=== PATIENT | female | born 1945 | race Caucasian/White ===

== ENCOUNTER → 2017-02-08 | Outpatient (CLI) | payer OTHER ==
[~2017-02-08] MED LIST: AMLODIPINE BESY1 TAB PO; DARVOCET N 1001 TAB PO; LISINOPRIL AND1 TAB PO; LISINOPRIL/HCTZ1 TA1; MOTRIN800 MG PO; NITROFURANTOIN100 M3 PO; NORVASC10 MG PO; PROPRANOLOL HCL20 M1; SERTRALINE HYDR50 MG PO; VESICARE5 MG
== END | disposition home or self-care (01) ==
LOC: RAD 14:11
DX: M79.641 Pain in right hand (principal)

== ENCOUNTER 2017-08-15 10:05 | Emergency (ER) | payer OTHER ==
[~2017-08-15] VITALS: Ht 170.1 cm; Wt 68.0 kg
[2017-08-15 10:34] LABS: BASO % 0.3 % (0.0-1.0); EOS # 0.1 10*3/uL (0.0-0.4); EOS % 0.6 % (1.0-4.0); HEMATOCRIT 45.9 % (37.0-47.0); HEMOGLOBIN 15.7 g/dl (12.0-16.0); LYMPH # 0.9 10*3/uL (1.3-4.4); LYMPH % 8.1 % (27.0-41.0); MEAN CELL VOLUME 87.4 fl (81.0-99.0); MEAN CORPUSCULAR HGB 29.9 pg (27.0-31.0); MEAN CORPUSCULAR HGB CONC 34.2 g/dl (33.0-37.0); MEAN PLATELET VOLUME 9.6 fl (9.6-12.3); MONO # 0.7 10*3/uL (0.1-1.0); MONO % 6.4 % (3.0-9.0); NEUT # 9.6 10*3/uL (2.3-7.9); NEUT % 84.2 % (47.0-73.0); PLATELET COUNT AUTOMATED 174 10*3/uL (130-400); RED BLOOD COUNT 5.25 10*6/uL (4.10-5.10); RED CELL DISTRI WIDTH 12.8 % (0-14.5); WHITE BLOOD COUNT 11.4 10*3/uL (4.8-10.8)
[2017-08-15 10:43] LABS: ACT PARTIAL THROMBO TIME 23.5 SECONDS (20.8-31.5)
[2017-08-15 10:50] LABS: ALBUMIN 3.7 gm/dl (3.1-4.5); ALKALINE PHOSPHATASE 79 U/L (45-117); BUN 18 mg/dl (7-24); CHLORIDE 103 mmol/L (98-107); CREATININE 1.18 mg/dL (0.55-1.02); LIPASE 179 U/L (73-393); POTASSIUM 3.8 mmol/L (3.5-5.1); SGOT/AST 24 IU/L (3-35); SGPT/ALT 23 U/L (12-78); SODIUM 138 mmol/L (136-145); TOTAL PROTEIN 8.1 gm/dL (6.4-8.2)
[2017-08-15 10:58] LABS: TROPONIN I < 0.015 ng/ml (<0.045)
[2017-08-15 11:30] LABS: BILIRUBIN NEGATIVE (NEGATIVE); BLOOD 3+ (NEGATIVE); CLARITY CLOUDY (CLEAR); COLOR YELLOW (YELLOW); GLUCOSE NEGATIVE (NEGATIVE); KETONE 1+ (NEGATIVE); LEUKO ESTERASE 1+ (NEGATIVE); NITRITE NEGATIVE (NEGATIVE); SPECIFIC GRAVITY 1.025 (1.005-1.030); UROBILINOGEN 0.2 E.U./dl (0.2-1.0)
[2017-08-15 11:38] LABS: BACTERIA 2+
[2017-08-15] MEDS ORDERED: ZOFRAN ODT4 MG SL (14:26)
== END 2017-08-15 15:01 | disposition home or self-care (01) ==
LOC: ED 10:05
PROVIDERS: Emergency Medicine
DX: N20.0 Calculus of kidney (principal); R10.12 Left upper quadrant pain; N13.30 Unspecified hydronephrosis; D72.829 Elevated white blood cell count, unspecified; I10 Essential (primary) hypertension; F32.9 Major depressive disorder, single episode, unspecified; N17.0 Acute kidney failure with tubular necrosis; Z90.710 Acquired absence of both cervix and uterus

== ENCOUNTER 2017-10-10 12:52 | Inpatient (IN) | payer OTHER ==
[~2017-10-10] VITALS: Ht 157.5 cm; Wt 72.6 kg
--- NOTE | ~2017-10-10 | PR ---
[place], [place] PROGRESS NOTE NAME: SIDNEY GOLDEN I UNIT #: [id number] ROOM: 528 DOCTOR: NANCIE WEIR MD BIRTHDATE: [birth year] DOS: 10/12/2017 SUBJECTIVE: Patient is not having any complaints this morning. She feels much better. She had a vagal episode yesterday, which resolved on its own. Labs were all within normal limits. OBJECTIVE: VITAL SIGNS: Graphic trend shows pressure of 127/60, pulse of 74, respirations 18, temperature 98.5. LUNGS: Clear. HEART: Regular. ABDOMEN: Obese, soft, nontender. EXTREMITIES: Without any edema. ASSESSMENT AND PLAN: 1. Acute asthmatic bronchitis, improving with treatment. Chest CT did not show any evidence of pneumonia. 2. Acute respiratory distress syndrome, seems to be resolving. Advised the patient to ambulate. The patient should be able to go home tomorrow. 3. Chronic renal failure, stage 3, most likely complicated by the hydrochlorothiazide that she is on. We will continue to follow that as an outpatient and may discontinue this medicine as an outpatient. NANCIE WEIR MD CM:PNTRANS [phone] NANCIE WEIR MD 10/12/174 interface
--- NOTE | ~2017-10-10 | WRIGHTHP ---
[place], [place] PATIENT HISTORY AND PHYSICAL EXAM NAME: SIDNEY GOLDEN I UNIT #: [id number] ROOM: 528 DOCTOR: NANCIE WEIR MD BIRTHDATE: [birth year] DOS: HISTORY OF PRESENT ILLNESS: This patient is 72 years old. The patient comes in with complaints of cough, runny nose, sputum production, fever and chest congestion since Manny. She did not take a flu shot this year and initially thought it was flu, but continued to get worse, so decided finally to come into the Emergency Room. She was last hospitalized about a year ago with UTI. PAST MEDICAL HISTORY: 1. Chronic renal insufficiency. 2. Benign hypertension. 3. Moderate depression. 4. History of negative stress test. MEDICATIONS: She is currently on amlodipine 10 daily, lisinopril/hydrochlorothiazide 20/12.5 mg daily and sertraline 50 daily. SOCIAL HISTORY: Nonsmoker. Does not use any alcohol. PHYSICAL EXAMINATION: GENERAL: The patient is awake, alert and oriented. VITAL SIGNS: Graphic trend shows that she is afebrile this morning, pulse of 78, respirations 14 and blood pressure 122/70. LUNGS: Clear. HEART: Regular. ABDOMEN: Obese, soft, nontender. EXTREMITIES: Without any edema. ASSESSMENT AND PLAN: 1. The patient who presents with cough and shortness of breath, most likely acute asthmatic bronchitis. The patient is placed on intravenous antibiotics and breathing treatments. CT of the chest will be ordered to rule out underlying pathology like pneumonia. 2. Benign hypertension, controlled. Restart home medications. 3. Chronic renal insufficiency. Routine labs will be ordered for tomorrow. [place], [place] PATIENT HISTORY AND PHYSICAL EXAM NAME: SIDNEY GOLDEN I UNIT #: [id number] ROOM: 528 DOCTOR: NANCIE WEIR MD BIRTHDATE: [birth year] NANCIE WEIR MD CM:HISPHYS:PATIENT HISTORY AND PHYSICAL EXAMINATION NANCIE WEIR MD 10/11/17 0850 interface
--- NOTE | ~2017-10-10 | PR ---
[place], [place] PROGRESS NOTE NAME: SIDNEY GOLDEN I UNIT #: [id number] ROOM: 528 DOCTOR: NANCIE WEIR MD BIRTHDATE: [birth year] DOS: 10/13/2017 SUBJECTIVE: The patient is feeling good and is not having any complaints today. The patient is 72 years old, comes in with complaints of cough, shortness of breath of several days' duration. Please see H and P for details. She was evaluated in the ER. Lactic acid was normal. Rapid flu was negative. Chest x-ray did not show any pathology. The patient was placed on IV steroids and breathing treatments and admitted. The patient was found to be having prerenal azotemia and this is most likely from the hydrochlorothiazide that she has been on and she has not had much fluid intake for the last several days. A CT of the chest was negative. The patient is stable and is not having any new problems. Blood cultures were done, which was negative. Urine culture was negative. The plan is to discharge her to home today. Follow up as an outpatient. OBJECTIVE: VITAL SIGNS: Graphic trend shows pressure 131/60, pulse of 70, respirations 18, afebrile. LUNGS: Diminished breath sounds. No wheezes, rales or rhonchi heard this morning. HEART: Regular. ABDOMEN: Obese, soft, nontender. EXTREMITIES: Without any edema. ASSESSMENT AND PLAN: 1. Shortness of breath, possibly from asthmatic bronchitis. 2. Benign hypertension, controlled. 3. Vasovagal episode, possibly from prerenal azotemia. 4. Chronic kidney disease stage III. Advised to avoid nephrotoxic meds. She is on hydrochlorothiazide. We will follow closely. MEDICATIONS ON DISCHARGE: Tapering dose of prednisone, doxycycline 100 mg p.o. twice a day for 7 days and her home medications. [place], [place] PROGRESS NOTE NAME: SIDNEY GOLDEN I UNIT #: [id number] ROOM: 528 DOCTOR: NANCIE WEIR MD BIRTHDATE: [birth year] NANCIE WEIR MD CM:PNTRANS [phone] NANCIE WEIR MD 10/14/17 0227 interface
[~2017-10-10 12:52] MED LIST changes: +ZOFRAN ODT4 MG SL
[2017-10-10 13:13] VITALS: BP 154/98
[2017-10-10 14:23] LABS: BILIRUBIN NEGATIVE (NEGATIVE); BLOOD 1+ (NEGATIVE); CLARITY SL CLOUDY (CLEAR); COLOR YELLOW (YELLOW); GLUCOSE NEGATIVE (NEGATIVE); KETONE 1+ (NEGATIVE); LEUKO ESTERASE 1+ (NEGATIVE); NITRITE NEGATIVE (NEGATIVE); PH 5.5 (5.0-9.0); SPECIFIC GRAVITY 1.025 (1.005-1.030); UROBILINOGEN 0.2 E.U./dl (0.2-1.0)
[2017-10-10 14:31] LABS: BACTERIA 3+
[2017-10-10 14:32] LABS: RBC 21-30 rbc/hpf (0-2)
[2017-10-10 14:33] LABS: WBC 21-30 wbc/hpf (0-5)
[2017-10-10 14:42] LABS: BASO # 0.1 10*3/uL (0.0-0.1); BASO % 0.6 % (0.0-1.0); EOS # 0.1 10*3/uL (0.0-0.4); EOS % 1.6 % (1.0-4.0); HEMATOCRIT 44.2 % (37.0-47.0); HEMOGLOBIN 14.8 g/dl (12.0-16.0); LYMPH # 2.1 10*3/uL (1.3-4.4); LYMPH % 26.5 % (27.0-41.0); MEAN CELL VOLUME 85.3 fl (81.0-99.0); MEAN CORPUSCULAR HGB 28.6 pg (27.0-31.0); MEAN CORPUSCULAR HGB CONC 33.5 g/dl (33.0-37.0); MEAN PLATELET VOLUME 9.7 fl (9.6-12.3); MONO # 0.7 10*3/uL (0.1-1.0); MONO % 8.8 % (3.0-9.0); PLATELET COUNT AUTOMATED 189 10*3/uL (130-400); RED BLOOD COUNT 5.18 10*6/uL (4.10-5.10); RED CELL DISTRI WIDTH 12.8 % (0-14.5)
[2017-10-10 14:55] LABS: ACT PARTIAL THROMBO TIME 23.2 SECONDS (20.8-31.5)
[2017-10-10 15:00] LABS: ALBUMIN 3.6 gm/dl (3.1-4.5); ALKALINE PHOSPHATASE 135 U/L (45-117); BUN 34 mg/dl (7-24); CHLORIDE 103 mmol/L (98-107); LIPASE 285 U/L (73-393); POTASSIUM 3.7 mmol/L (3.5-5.1); SGOT/AST 56 IU/L (3-35); SGPT/ALT 68 U/L (12-78); SODIUM 133 mmol/L (136-145); TOTAL PROTEIN 7.9 gm/dL (6.4-8.2)
[2017-10-10 15:01] LABS: TROPONIN I < 0.015 ng/ml (<0.045)
[2017-10-10 15:30] VITALS: BP 144/66
[2017-10-10 20:00] VITALS: BP 131/55
[2017-10-11] VITALS: BP 135/47
[2017-10-11 08:00] VITALS: BP 147/57
[2017-10-11 12:00] VITALS: BP 142/60
[2017-10-11] MEDS ORDERED: SUNMARK OMEPRAZ20 M1 PO (14:35)
[2017-10-11] MEDS ORDERED: FLOMAX0.4 MG PO (14:36)
[2017-10-11] MEDS ORDERED: OXYBUTYNIN5 MG PO (14:36)
[2017-10-11] MEDS ORDERED: PERCOCET 5-3251 EACH PO (14:36)
[2017-10-11 16:00] VITALS: BP 151/63
[2017-10-11 17:00] LABS: BASO # 0.1 10*3/uL (0.0-0.1); BASO % 0.9 % (0.0-1.0); EOS # 0.2 10*3/uL (0.0-0.4); EOS % 2.8 % (1.0-4.0); LYMPH # 1.7 10*3/uL (1.3-4.4); LYMPH % 29.2 % (27.0-41.0); MEAN CELL VOLUME 85.6 fl (81.0-99.0); MEAN CORPUSCULAR HGB 28.8 pg (27.0-31.0); MEAN CORPUSCULAR HGB CONC 33.6 g/dl (33.0-37.0); MEAN PLATELET VOLUME 9.4 fl (9.6-12.3); MONO # 0.7 10*3/uL (0.1-1.0); MONO % 11.5 % (3.0-9.0); NEUT # 3.1 10*3/uL (2.3-7.9); NEUT % 54.9 % (47.0-73.0); PLATELET COUNT AUTOMATED 169 10*3/uL (130-400); RED CELL DISTRI WIDTH 13.1 % (0-14.5); WHITE BLOOD COUNT 5.7 10*3/uL (4.8-10.8)
[2017-10-11 17:02] LABS: HEMATOCRIT 35.1 % (37.0-47.0); HEMOGLOBIN 11.8 g/dl (12.0-16.0)
[2017-10-11 17:17] LABS: BUN 27 mg/dl (7-24); CHLORIDE 104 mmol/L (98-107); CREATININE 1.74 mg/dL (0.55-1.02); POTASSIUM 4.2 mmol/L (3.5-5.1); SODIUM 138 mmol/L (136-145); TROPONIN I < 0.015 ng/ml (<0.045)
[2017-10-11 20:00] VITALS: BP 116/58
[2017-10-12] VITALS: BP 127/60
[2017-10-12 06:51] LABS: HEMATOCRIT 35.8 % (37.0-47.0); HEMOGLOBIN 12.1 g/dl (12.0-16.0); MEAN CELL VOLUME 85.2 fl (81.0-99.0); MEAN CORPUSCULAR HGB 28.8 pg (27.0-31.0); MEAN CORPUSCULAR HGB CONC 33.8 g/dl (33.0-37.0); MEAN PLATELET VOLUME 9.4 fl (9.6-12.3); PLATELET COUNT AUTOMATED 194 10*3/uL (130-400); WHITE BLOOD COUNT 5.4 10*3/uL (4.8-10.8)
[2017-10-12 07:08] LABS: CREATININE 1.59 mg/dL (0.55-1.02); POTASSIUM 3.9 mmol/L (3.5-5.1)
[2017-10-12 07:35] LABS: ATYPICAL LYMPHS 1 % (0-0); BASOPHILS 2 % (0-1); PLATELET SUFFICIENCY NORMAL (NORMAL); TOTAL CELLS COUNTED 100 #CELLS
[2017-10-12 08:00] VITALS: BP 130/63
[2017-10-12 12:00] VITALS: BP 131/51
[2017-10-12 16:00] VITALS: BP 125/50
[2017-10-12 20:00] VITALS: BP 120/58
[2017-10-13] VITALS: BP 121/50; BP 142/50
[2017-10-13 08:00] VITALS: BP 131/60
[2017-10-13] MEDS ORDERED: DOXYCYCLINE100 M3 PO (08:58)
[2017-10-13] MEDS ORDERED: PREDNISONE5 MG PO (08:58)
== END 2017-10-13 11:01 | disposition home or self-care (01) | DRG 194 ==
LOC: ED 12:52 → EDHOLD 15:49 → 5E 15:49
PROVIDERS: Emergency Medicine; Internal Medicine
DX: J18.9 Pneumonia, unspecified organism (principal); J80 Acute respiratory distress syndrome; N18.3 Chronic kidney disease, stage 3 (moderate); N39.0 Urinary tract infection, site not specified; J20.9 Acute bronchitis, unspecified; E86.0 Dehydration; J45.909 Unspecified asthma, uncomplicated; I12.9 Hypertensive chronic kidney disease with stage 1 through stage 4 chronic kidney disease, or unspecified chronic kidney disease; F32.9 Major depressive disorder, single episode, unspecified; R79.89 Other specified abnormal findings of blood chemistry; Z87.440 Personal history of urinary (tract) infections; K21.9 Gastro-esophageal reflux disease without esophagitis; F41.9 Anxiety disorder, unspecified; Z83.3 Family history of diabetes mellitus; Z82.49 Family history of ischemic heart disease and other diseases of the circulatory system; Z80.9 Family history of malignant neoplasm, unspecified

== ENCOUNTER → 2018-03-24 | Day surgery (SDC) | payer OTHER ==
[~2018-03-24] VITALS: Ht 157.4 cm; Wt 76.7 kg
[~2018-03-24] MED LIST changes: +AMITRIPTYLINE50 MG PO; +DOXYCYCLINE100 M3 PO; +FLOMAX0.4 MG PO; +METOPROLOL TART50 M1 PO; +OMEPRAZOLE40 MG PO; +OXYBUTYNIN5 MG PO; +PERCOCET 5-3251 EACH PO; +PREDNISONE5 MG PO; +SUNMARK OMEPRAZ20 M1 PO
--- NOTE | ~2018-03-24 | O ---
[place], [place] OPERATIVE NOTE NAME: SIDNEY GOLDEN I UNIT #: [id number] ROOM: DOCTOR: RODGER [facility] BIR[facility] [birth year] DOS: 03/24/2018 GASTROENDOSCOPIC REPORT HISTORY OF PRESENT ILLNESS: A 73-year-old patient who was presented with blood in the stool, dyspepsia, undergoing investigation. PAST MEDICAL HISTORY: Hyperlipidemia, gastritis, hypertension. PAST SURGICAL HISTORY: Hysterectomy, adhesions. SOCIAL HISTORY: Nonsmoker, rare alcohol consumer. PROCEDURE: Today's procedure part of investigation is panendoscopy and colonoscopy. PREMEDICATION: Versed and propofol. SCOPE: Olympus forward-viewing gastroscope Q10 video. REPORT: After putting the patient in left lateral position and application of lubricant to the scope, the scope was introduced. Thereafter, under direct visualization, advanced through the length of esophagus without difficulty. Esophagus, cervical, thoracic distal within normal limit. Gastritis was noticed. Antral biopsy obtained. Duodenal bulb, second and third part within normal limits. The patient was gradually extubated and tolerated the procedure well. IMPRESSION: Gastritis, status post biopsy. PLAN AND DISCUSSION: Continuation with omeprazole 40 mg 1 every day, antireflux and follow up as outpatient. Furthermore, we are going to proceed with colonoscopic evaluation today. GASTROENDOSCOPIC REPORT INDICATIONS: The patient has presented with blood in stool, undergoing investigation. PROCEDURE: Today's procedure part of investigation is colonoscopy plus piecemeal polypectomy. PREMEDICATION: Versed and propofol. SCOPE: Olympus forward-viewing colonoscope 10L video. REPORT: After putting the patient in left lateral position and application of lubricant to the scope, the scope was introduced. Thereafter, under direct visualization, advanced through the length of colon without difficulty. Diverticulosis was appreciated. Base of cecum explored, appendiceal orifice [place], [place] OPERATIVE NOTE NAME: SIDNEY GOLDEN I UNIT #: [id number] ROOM: DOCTOR: RODGER [facility] BIRTHDATE: [birth year] identified, ileocecal valve was defined. Scope was gradually withdrawn back to the sigmoid colon. Piecemeal polypectomy of a sessile polyp was undertaken. Diverticulosis was photographed. The patient extubated, tolerated procedure well. IMPRESSION: Diverticulosis and sessile colonic polyp, colon. Blood in the stool was most likely a superficial. There was no evidence of pathology in the rectum. PLAN: High fiber fruit diet. ACTIVITY: Ad shalom. FOLLOWUP: Routinely with you in office, p.r.n. visit with us in GI Clinic. Follow-up colonoscopy in 10 years unless patient has symptoms for which follow-up should be sooner. I thank you very much indeed. ALEX SOARES MD CM:OPRECORD:OPERATIVE NOTE [id number] [id number] NANCIE SOARES MD 04/03/18 1739 interface
[2018-03-24 13:02] VITALS: BP 167/85
[2018-03-24 14:12] VITALS: BP 162/81
[2018-03-24 14:27] VITALS: BP 182/77
[2018-03-24 14:42] VITALS: BP 197/79
[2018-03-24 14:57] VITALS: BP 170/69
[2018-03-24 15:20] VITALS: BP 174/77
== END | disposition home or self-care (01) ==
LOC: SDC 03-21 12:30
DX: K63.5 Polyp of colon (principal); K57.30 Diverticulosis of large intestine without perforation or abscess without bleeding; K29.50 Unspecified chronic gastritis without bleeding; B96.81 Helicobacter pylori [H. pylori] as the cause of diseases classified elsewhere; E78.5 Hyperlipidemia, unspecified; I10 Essential (primary) hypertension; K21.9 Gastro-esophageal reflux disease without esophagitis; F41.9 Anxiety disorder, unspecified; F32.9 Major depressive disorder, single episode, unspecified; Z87.442 Personal history of urinary calculi; Z90.710 Acquired absence of both cervix and uterus; Z79.899 Other long term (current) drug therapy; Z82.49 Family history of ischemic heart disease and other diseases of the circulatory system; Z83.3 Family history of diabetes mellitus

== ENCOUNTER 2019-01-08 12:48 | Inpatient (IN) | payer OTHER ==
[~2019-01-08] VITALS: Ht 157.4 cm; Wt 75.8 kg
--- NOTE | ~2019-01-08 | EKG ---
[place], [place] ELECTROCARDIOGRAM REPORT NAME: SIDNEY GOLDEN I UNIT #: [id number] ROOM: 405 DOCTOR: KUNAL DRAFT REPORT BIRTHDATE: [birth year] [facility] Test Date: 2019-01-08 Test Time: 14:40:46 Pat Name: SIDNEY GOLDEN Department: Room: 405 2 Gender: F Visual Coordinator: Asia Simpson : 1945 Requested By: NANCIE WEIR Order Number: [id number] Reading MD: Jc Martines MD Measurements Intervals [place] Rate: 92 P: 45 [place]: 161 QRS: -46 QRSD: 86 T: 62 QT: 333 QTc: 412 Interpretive Statements Sinus rhythm Left anterior fascicular block Low voltage, precordial leads LVH by voltage Anterior Q waves, possibly due to LVH No previous ECG available for comparison Electronically Signed On 01-09-2019 14:44:01 PDT by Jc Martines MD CM:EKGRPT:ELECTROCARDIOGRAM REPORT 1440 [id number] NANCIE SYED DRAFT REPORT NANCIE WEIR MD
--- NOTE | ~2019-01-08 | WRIGHTHP ---
[place], [place] PATIENT HISTORY AND PHYSICAL EXAM NAME: SIDNEY GOLDEN I UNIT #: [id number] ROOM: 405 DOCTOR: NANCIE WEIR MD BIRTHDATE: [birth year] DOS: 01/09/2019 HISTORY OF PRESENT ILLNESS: The patient is 73 years old. The patient comes to the office with complaints of severe cough, not feeling good, aches and pains, chills and some chest discomfort across. She also complains of pain when she takes a deep breath. Denied having any abdominal pain, nausea, and emesis. The patient has been sick for about a week also and finally decided to come into the office. PAST MEDICAL HISTORY: Significant for 1. Last hospitalization in 10/2017 with asthmatic bronchitis. 2. Benign hypertension. 3. Chronic kidney disease stage 3. MEDICATIONS: That she is currently on are amitriptyline 50 mg daily, lisinopril/hydrochlorothiazide 20/12.5 daily, omeprazole 40 daily. SOCIAL HISTORY: Does not smoke, does not use any alcohol. PHYSICAL EXAMINATION: GENERAL: She is awake and alert, but looked extremely exhausted and tired. VITAL SIGNS: Her heart rate was going in the 120s range. NECK: Supple. No lymph nodes were noted. HEENT: Unremarkable. LUNGS: Diminished breath sounds, few scattered wheezes. HEART: Regular, tachycardic. ABDOMEN: Obese, soft. EXTREMITIES: Without any edema. ASSESSMENT AND PLAN: 1. The patient who presents with chills, rigor, tiredness, diffuse aches and pains, possibly has flu. Titer was done and showed positive for flu A. Placed on Tamiflu. 2. Chest pain. Troponins 3 sets will be ordered along with an echocardiogram. 3. Cough with increased difficulty breathing. Chest x-ray was ordered. I do not have the report yet. We will go ahead and arrange for a CT of the chest. [place], [place] PATIENT HISTORY AND PHYSICAL EXAM NAME: SIDNEY GOLDEN I UNIT #: [id number] ROOM: 405 DOCTOR: NANCIE WEIR MD BIRTHDATE: [birth year] NANCIE WEIR MD CM:HISPHYS:PATIENT HISTORY AND PHYSICAL EXAMINATION [id number] NANCIE WEIR MD 01/09/19 1024 interface
--- NOTE | ~2019-01-08 | DS ---
[place], [place] DISCHARGE SUMMARY NAME: SIDNEY GOLDEN I UNIT #: [id number] ROOM: 405 DOCTOR: NANCIE WEIR MD BIRTHDATE: [birth year] DOS: 01/10/2019 DIAGNOSES: 1. Flu A positive with viral syndrome. 2. Asthmatic bronchitis. 3. Tachycardia. 4. Acute kidney injury. 5. Acute back pain for a fall with radiculopathy. HOSPITAL COURSE: This patient is 73 years old. The patient was admitted with increased chest discomfort, fever, chills, shortness of breath. Please refer to H and P for details. The patient had asthmatic bronchitis, after admission was diagnosed with flu A for which the patient was started on Tamiflu. Three sets of troponins were negative. Chest x-ray was negative. Continued to have cough with bronchospasm. IV steroids were added along with breathing treatments and antibiotics. The patient's CT scan was ordered, which also showed no evidence of pneumonia. Did complain of continued back pain after a recent fall as MRI of the LS spine is pending. The patient is stable. The plan is to discharge her to home today. Follow up as an outpatient. NANCIE WEIR MD CM:ALFREDA [id number] NANCIE WERI MD 01/10/19 0945 interface
--- NOTE | ~2019-01-08 | PR ---
[place], [place] PROGRESS NOTE NAME: SIDNEY GOLDEN I UNIT #: [id number] ROOM: 405 DOCTOR: NANCIE WEIR MD BIRTHDATE: [birth year] DOS: 01/10/2019 SUBJECTIVE: The patient still has a slight cough, but she looks much better. The patient is no longer having any shortness of breath. Appetite is fair. She did complain of back pain after a recent fall, which is radiating down into the right leg. OBJECTIVE: VITAL SIGNS: Pressure is 130/60, pulse of 70, respirations 18, temperature 97.9. LUNGS: Diminished breath sounds, clear. HEART: Regular. ABDOMEN: Soft. EXTREMITIES: Without any edema. IMAGING: CT of the chest was negative. ASSESSMENT AND PLAN: 1. Viral syndrome with flu A positive, on medications. 2. Acute kidney injury, improving with intravenous fluids. 3. Asthmatic bronchitis, improved. Bronchospasm was corrected. 4. Acute back pain from a recent fall. An MRI of lumbosacral spine will be ordered. The patient will be discharged home today. NANCIE WEIR MD CM:PNTRANS [phone] NANCIE WEIR MD 01/10/19 0953 interface
--- NOTE | 2019-01-08 13:35 | NUR ---
[place] 73, admitted to , under the services of NANCIE Rojas MD with a diagnosis of ASTHMATIC BRONCHITIS, CHEST PAIN. Chief complaint is SOB, CHEST PAIN. Patient arrived via wheel chair from [place]. Monitor applied. Initial assessment completed. Vital signs taken and recorded. NANCIE ROJAS MD notified of admission to the unit. Orders received. See assessment for past medical history, medications and allergies. Patient and/or family oriented to unit. [facility]. Clothing/patient valuable form completed. EDDI MEEK.
[2019-01-08] MEDS ORDERED: ZESTORETIC 10-1 EACH PO (14:04)
[2019-01-08 14:17] VITALS: BP 150/88
[2019-01-08 14:49] LABS: BASO % 0.5 % (0.0-1.0); EOS # 0.1 10*3/uL (0.0-0.4); EOS % 1.6 % (1.0-4.0); HEMATOCRIT 43.2 % (37.0-47.0); HEMOGLOBIN 14.6 g/dl (12.0-16.0); LYMPH # 1.6 10*3/uL (1.3-4.4); LYMPH % 21.4 % (27.0-41.0); MEAN CELL VOLUME 92.3 fl (81.0-99.0); MEAN CORPUSCULAR HGB 31.2 pg (27.0-31.0); MEAN CORPUSCULAR HGB CONC 33.8 g/dl (33.0-37.0); MEAN PLATELET VOLUME 8.8 fl (9.6-12.3); MONO # 0.8 10*3/uL (0.1-1.0); MONO % 10.1 % (3.0-9.0); NEUT # 4.9 10*3/uL (2.3-7.9); NEUT % 65.7 % (47.0-73.0); PLATELET COUNT AUTOMATED 181 10*3/uL (130-400); RED BLOOD COUNT 4.68 10*6/uL (4.10-5.10); RED CELL DISTRI WIDTH 13.1 % (0-14.5); WHITE BLOOD COUNT 7.5 10*3/uL (4.8-10.8)
[2019-01-08 15:22] LABS: CREATININE 1.56 mg/dL (0.55-1.02)
--- NOTE | 2019-01-08 16:03 | NUR ---
DR WEIR NOTIFIED OF POSITIVE FLU A
--- NOTE | 2019-01-08 18:32 | NUR ---
IV HAVEN INFILTRATED, RESTART IN LW WARM COMPRESS PLACED
[2019-01-08 20:00] VITALS: BP 143/76
--- NOTE | 2019-01-08 22:45 | NUR ---
CONTACTED DR. PERALTA IN REGARDS TO PATIENT C/O HEADACHE, SEE NEW ORDERS.
[2019-01-09] VITALS: BP 165/79
[2019-01-09 08:00] VITALS: BP 136/84
--- NOTE | 2019-01-09 09:00 | NUR ---
Hall Director in to talk to patient. Patient states lives at home alone with her family checking in on her. There are 0 steps in the home. Physician: Dr. Esperanza Rodríguez [facility]: [facility] Home health services: none Patient's level of ADLs: INDEPENDENT Patient has working utilities: yes DME: none Follow-up physician's appointment after d/c: she prefers to make her own follow up appt after discharge Does patient want to access PORTAL?: no Discharge plan discussed with patient. She lives at home alone with her family checking in on her. She is independent in her ADLs and ambulation. Discussed home health care services and she denies any home needs at this time. When medically stable she will be discharged to home. JOAQUINA LOWE
--- NOTE | 2019-01-09 09:41 | NUR ---
MEDICATED WITH 2 TYLENOL FOR COMPLAINTS OF A HEADACHE
[2019-01-09 12:00] VITALS: BP 126/63
[2019-01-09 16:10] VITALS: BP 106/57
[2019-01-09 20:00] VITALS: BP 114/54
[2019-01-10] VITALS: BP 130/60
--- NOTE | 2019-01-10 08:10 | NUR ---
PT RESTING IN BED WITH HOB ELEVATED. RESP-EASY AND REGULAR. IVF INFUSING WITH NO PROBLEM. NO C/O AT THIS TIME. STUDENT NURSE WITH PT ALSO TODAY. CALL LIGHT IN REACH.
[2019-01-10] MEDS ORDERED: LISINOPRIL10 M1 PO (08:19)
[2019-01-10] MEDS ORDERED: TAMIFLU 75MG CA75 MG PO (08:19)
[2019-01-10] MEDS ORDERED: DOXYCYCLINE100 M3 PO (08:19)
[2019-01-10] MEDS ORDERED: PREDNISONE5 MG PO (08:19)
--- NOTE | 2019-01-10 09:00 | NUR ---
Sound Designer in to see patient. No new needs or request at this time. She denies any home needs. When medically stable she will be discharged to home.
--- NOTE | 2019-01-10 10:00 | NUR ---
RESTING IN BED WAITING FOR MRI TEST.
--- NOTE | 2019-01-10 11:40 | NUR ---
RETURNED FROM MRI. LUNCH ORDERED. nO C/O, RESTING IN BED. cALL LIGHT WITH IN REACH. MABEL PATEL
[2019-01-10 12:00] VITALS: BP 147/73
--- NOTE | 2019-01-10 13:00 | NUR ---
Discharge instructions reviewed with patient/family. Patient receptive and verbalizes understanding. Follow-up care arranged. Written instructions given to patient/family. HEPLOCK REMOVED 2X2 APPLIED. ASSISTED OFF THE FLOOR VIA WHEELCHAIR WITH VISITOR AT HER SIDE. TAI MICHELLE R
== END 2019-01-10 13:00 | disposition home or self-care (01) | DRG 194 ==
LOC: 4E 12:48
PROVIDERS: ADMIT Internal Medicine
DX: J10.1 Influenza due to other identified influenza virus with other respiratory manifestations (principal); N17.9 Acute kidney failure, unspecified; R09.1 Pleurisy; J45.909 Unspecified asthma, uncomplicated; M54.10 Radiculopathy, site unspecified; N18.3 Chronic kidney disease, stage 3 (moderate); I12.9 Hypertensive chronic kidney disease with stage 1 through stage 4 chronic kidney disease, or unspecified chronic kidney disease; Z91.81 History of falling

== ENCOUNTER → 2020-08-29 | Outpatient (CLI) | payer OTHER ==
[~2020-08-29] MED LIST changes: +LISINOPRIL10 M1 PO; +TAMIFLU 75MG CA75 MG PO; +ZESTORETIC 10-1 EACH PO
== END | disposition home or self-care (01) ==
LOC: COVID19 14:54
PROVIDERS: ATTEND Physician Assistant
DX: Z20.828 Contact with and (suspected) exposure to other viral communicable diseases (principal)

== ENCOUNTER → 2020-09-22 | Outpatient (CLI) | payer OTHER | END | disposition home or self-care (01) | LOC: US 06:59 | PROVIDERS: ATTEND Physician Assistant | DX: N28.9 Disorder of kidney and ureter, unspecified (principal); I10 Essential (primary) hypertension; N28.89 Other specified disorders of kidney and ureter ==

== ENCOUNTER 2020-12-23 11:33 | Emergency (ER) | payer OTHER ==
[~2020-12-23] VITALS: Ht 160 cm; Wt 74.8 kg
[2020-12-23 13:55] LABS: BILIRUBIN Negative (Negative); BLOOD 1+ (Negative); CLARITY Clear (Clear); COLOR Yellow (Yellow); GLUCOSE Negative (Negative); KETONE Negative (Negative); LEUKO ESTERASE 2+ (Negative); NITRITE Negative (Negative); UROBILINOGEN 0.2 E.U./dl (0.0-1.0)
[2020-12-23 14:14] LABS: BACTERIA 2+; WBC 41-50 wbc/hpf (0-5)
[2020-12-23] MEDS ORDERED: FLOMAX0.4 MG PO (17:36)
[2020-12-23] MEDS ORDERED: HYDROCODONE-AC1 EAC1 PO (17:37)
[2020-12-23] MEDS ORDERED: CEFUROXIME AXE500 MG PO (17:37)
== END 2020-12-23 17:41 | disposition home or self-care (01) ==
LOC: ED 11:33
PROVIDERS: Physician Assistant
DX: N20.1 Calculus of ureter (principal); F41.9 Anxiety disorder, unspecified; K21.9 Gastro-esophageal reflux disease without esophagitis; I10 Essential (primary) hypertension; F32.9 Major depressive disorder, single episode, unspecified; Z79.899 Other long term (current) drug therapy; Z90.711 Acquired absence of uterus with remaining cervical stump; Z98.890 Other specified postprocedural states

== ENCOUNTER 2021-06-03 20:48 | Inpatient (IN) | payer OTHER ==
[~2021-06-03] VITALS: Ht 158.7 cm; Wt 81.9 kg
[~2021-06-03 20:48] MED LIST changes: +CEFUROXIME AXE500 MG PO; +HYDROCODONE-AC1 EAC1 PO
[2021-06-03 20:56] VITALS: BP 223/83
[2021-06-03 21:11] VITALS: BP 198/103
[2021-06-03 21:17] LABS: BASO # 0.1 10*3/uL (0.0-0.1); BASO % 0.8 % (0.0-1.0); EOS # 0.3 10*3/uL (0.0-0.4); EOS % 4.7 % (1.0-4.0); LYMPH # 2.5 10*3/uL (1.3-4.4); LYMPH % 40.7 % (27.0-41.0); MEAN CELL VOLUME 85.5 fl (81.0-99.0); MEAN CORPUSCULAR HGB 28.4 pg (27.0-31.0); MEAN CORPUSCULAR HGB CONC 33.3 g/dl (33.0-37.0); MEAN PLATELET VOLUME 9.2 fl (9.6-12.3); MONO # 0.7 10*3/uL (0.1-1.0); MONO % 10.8 % (3.0-9.0); NEUT # 2.6 10*3/uL (2.3-7.9); NEUT % 42.5 % (47.0-73.0); PLATELET COUNT AUTOMATED 237 10*3/uL (130-400); RED BLOOD COUNT 4.68 10*6/uL (4.10-5.10); RED CELL DISTRI WIDTH 13.9 % (0-14.5); WHITE BLOOD COUNT 6.2 10*3/uL (4.8-10.8)
[2021-06-03 21:35] LABS: ALBUMIN 3.7 gm/dl (3.1-4.5); ALKALINE PHOSPHATASE 74 U/L (45-117); BUN 27 mg/dl (7-24); CHLORIDE 109 mmol/L (98-107); CREATININE 1.31 mg/dL (0.55-1.02); POTASSIUM 4.1 mmol/L (3.5-5.1); SGOT/AST 19 IU/L (3-35); SGPT/ALT 19 U/L (12-78); SODIUM 140 mmol/L (136-145); TOTAL PROTEIN 7.4 gm/dL (6.4-8.2)
[2021-06-03 21:41] LABS: TROPONIN I < 0.015 ng/ml (<0.045)
[2021-06-03 21:50] VITALS: BP 210/75
[2021-06-03 22:18] VITALS: BP 180/78
[2021-06-04] VITALS (9 sets, daily range): BP systolic 128–200; BP diastolic 45–98
[2021-06-04 06:03] LABS: ALBUMIN 3.2 gm/dl (3.1-4.5); CREATININE 1.25 mg/dL (0.55-1.02); POTASSIUM 3.9 mmol/L (3.5-5.1); TOTAL PROTEIN 6.4 gm/dL (6.4-8.2)
[2021-06-04 06:25] LABS: BASO % 0.7 % (0.0-1.0); EOS # 0.3 10*3/uL (0.0-0.4); EOS % 4.3 % (1.0-4.0); HEMATOCRIT 38.1 % (37.0-47.0); LYMPH # 1.9 10*3/uL (1.3-4.4); LYMPH % 33.5 % (27.0-41.0); MEAN CELL VOLUME 87.6 fl (81.0-99.0); MEAN CORPUSCULAR HGB 28.7 pg (27.0-31.0); MEAN CORPUSCULAR HGB CONC 32.8 g/dl (33.0-37.0); MEAN PLATELET VOLUME 9.9 fl (9.6-12.3); MONO # 0.6 10*3/uL (0.1-1.0); PLATELET COUNT AUTOMATED 221 10*3/uL (130-400); RED BLOOD COUNT 4.35 10*6/uL (4.10-5.10); RED CELL DISTRI WIDTH 13.9 % (0-14.5); WHITE BLOOD COUNT 5.8 10*3/uL (4.8-10.8)
[2021-06-05] VITALS: BP 169/77
[2021-06-05 06:07] LABS: BASO # 0.1 10*3/uL (0.0-0.1); BASO % 0.9 % (0.0-1.0); EOS # 0.3 10*3/uL (0.0-0.4); EOS % 4.9 % (1.0-4.0); HEMATOCRIT 38.3 % (37.0-47.0); LYMPH # 2.1 10*3/uL (1.3-4.4); LYMPH % 37.4 % (27.0-41.0); MEAN CELL VOLUME 86.8 fl (81.0-99.0); MEAN CORPUSCULAR HGB 28.8 pg (27.0-31.0); MEAN CORPUSCULAR HGB CONC 33.2 g/dl (33.0-37.0); MEAN PLATELET VOLUME 9.6 fl (9.6-12.3); MONO # 0.6 10*3/uL (0.1-1.0); MONO % 10.4 % (3.0-9.0); NEUT # 2.6 10*3/uL (2.3-7.9); NEUT % 45.7 % (47.0-73.0); PLATELET COUNT AUTOMATED 222 10*3/uL (130-400); RED BLOOD COUNT 4.41 10*6/uL (4.10-5.10); RED CELL DISTRI WIDTH 13.9 % (0-14.5); WHITE BLOOD COUNT 5.7 10*3/uL (4.8-10.8)
[2021-06-05 06:24] LABS: ALBUMIN 3.2 gm/dl (3.1-4.5); CREATININE 1.36 mg/dL (0.55-1.02); POTASSIUM 4.1 mmol/L (3.5-5.1); TOTAL PROTEIN 6.5 gm/dL (6.4-8.2)
[2021-06-05 08:00] VITALS: BP 151/67
[2021-06-05 12:00] VITALS: BP 121/54
[2021-06-05] MEDS ORDERED: AMLODIPINE BESYL5 MG PO (13:17)
== END 2021-06-05 14:53 | disposition home or self-care (01) | DRG 205 ==
LOC: ED 20:48 → 5E 23:08 → EDHOLD 23:08 → 5E 23:55
PROVIDERS: Internal Medicine; Nurse Practitioner Family; ADMIT Family Medicine; ATTEND Family Medicine
PROC: 4A02XM4 Measurement of Cardiac Total Activity, External Approach (ICD-10-PCS; principal; 2021-06-04)
PROC: 3E073KZ Introduction of Other Diagnostic Substance into Coronary Artery, Percutaneous Approach (ICD-10-PCS; 2021-06-04)
DX: M94.0 Chondrocostal junction syndrome [Tietze] (principal); N17.0 Acute kidney failure with tubular necrosis; I16.1 Hypertensive emergency; I12.9 Hypertensive chronic kidney disease with stage 1 through stage 4 chronic kidney disease, or unspecified chronic kidney disease; N18.32 Chronic kidney disease, stage 3b; R00.1 Bradycardia, unspecified; E87.8 Other disorders of electrolyte and fluid balance, not elsewhere classified; F32.9 Major depressive disorder, single episode, unspecified; E78.5 Hyperlipidemia, unspecified; I25.10 Atherosclerotic heart disease of native coronary artery without angina pectoris; Z82.49 Family history of ischemic heart disease and other diseases of the circulatory system; Z79.899 Other long term (current) drug therapy; Z79.1 Long term (current) use of non-steroidal anti-inflammatories (NSAID); Z95.5 Presence of coronary angioplasty implant and graft; Z90.710 Acquired absence of both cervix and uterus

== ENCOUNTER → 2021-10-23 | Day surgery (SDC) | payer OTHER ==
[2021-10-23] VITALS (12 sets, daily range): BP systolic 152–174; BP diastolic 54–98
[~2021-10-23] VITALS: Ht 157.4 cm; Wt 77.1 kg
[~2021-10-23] MED LIST changes: +AMLODIPINE BESYL5 MG PO; +AMOXICILLIN500 M2 PO; +COLACE100 MG PO; +COREG12.5 M1 PO; +CRESTOR20 M1 PO; +Carafate1 GM PO; +Clarithromycin250 MG PO; +MYRBETRIQ25 M1 PO; +NITROSTAT0.4 MG SL; +PANTOPRAZOLE SO40 MG PO; +TOPROL XL25 MG PO; +ZOFRAN4 MG PO
[2021-10-23 11:02] LABS: ALBUMIN 3.3 gm/dl (3.1-4.5); CREATININE 1.6 mg/dL (0.55-1.02); POTASSIUM 4.1 mmol/L (3.5-5.1); TOTAL PROTEIN 6.8 gm/dL (6.4-8.2)
== END | disposition home or self-care (01) ==
LOC: SDC 10-20 13:15
PROVIDERS: ATTEND Surgery
DX: K80.10 Calculus of gallbladder with chronic cholecystitis without obstruction (principal); F41.9 Anxiety disorder, unspecified; F32.9 Major depressive disorder, single episode, unspecified; K21.9 Gastro-esophageal reflux disease without esophagitis; J44.9 Chronic obstructive pulmonary disease, unspecified; I25.10 Atherosclerotic heart disease of native coronary artery without angina pectoris; E78.5 Hyperlipidemia, unspecified; I12.9 Hypertensive chronic kidney disease with stage 1 through stage 4 chronic kidney disease, or unspecified chronic kidney disease; N18.30 Chronic kidney disease, stage 3 unspecified; Z87.891 Personal history of nicotine dependence; Z79.899 Other long term (current) drug therapy

== ENCOUNTER 2022-05-06 08:02 | Inpatient (IN) | payer OTHER ==
[~2022-05-06] VITALS: Ht 157.4 cm; Wt 75.5 kg
[2022-05-06 08:05] VITALS: BP 144/85
[2022-05-06 08:35] LABS: BASO % 0.6 % (0.0-1.0); EOS # 0.1 10*3/uL (0.0-0.4); HEMATOCRIT 46.1 % (37.0-47.0); LYMPH # 1.4 10*3/uL (1.3-4.4); LYMPH % 28.7 % (27.0-41.0); MEAN CELL VOLUME 87.5 fl (81.0-99.0); MEAN CORPUSCULAR HGB CONC 33.2 g/dl (33.0-37.0); MEAN PLATELET VOLUME 9.5 fl (9.6-12.3); MONO # 0.8 10*3/uL (0.1-1.0); MONO % 15.9 % (3.0-9.0); NEUT # 2.6 10*3/uL (2.3-7.9); NEUT % 53.2 % (47.0-73.0); PLATELET COUNT AUTOMATED 155 10*3/uL (130-400); RED BLOOD COUNT 5.27 10*6/uL (4.10-5.10); RED CELL DISTRI WIDTH 13.7 % (0-14.5); WHITE BLOOD COUNT 4.8 10*3/uL (4.8-10.8)
[2022-05-06 08:45] LABS: ACT PARTIAL THROMBO TIME 31.1 SECONDS (20.0-32.1)
[2022-05-06 08:53] LABS: CREATININE 1.47 mg/dL (0.55-1.02); POTASSIUM 4.1 mmol/L (3.5-5.1); TOTAL PROTEIN 7.3 gm/dL (6.4-8.2)
[2022-05-06 16:24] VITALS: BP 176/66
[2022-05-06 16:25] VITALS: BP 145/89
[2022-05-06] MEDS ORDERED: ZOLOFT50 MG PO (17:16)
[2022-05-06 20:00] VITALS: BP 166/78; BP 174/83
[2022-05-07] VITALS: BP 148/81
[2022-05-07 06:31] LABS: BASO % 0.5 % (0.0-1.0); HEMATOCRIT 47.8 % (37.0-47.0); LYMPH # 0.8 10*3/uL (1.3-4.4); LYMPH % 37.3 % (27.0-41.0); MEAN CELL VOLUME 86.8 fl (81.0-99.0); MEAN CORPUSCULAR HGB 28.9 pg (27.0-31.0); MEAN CORPUSCULAR HGB CONC 33.3 g/dl (33.0-37.0); MONO # 0.2 10*3/uL (0.1-1.0); MONO % 8.5 % (3.0-9.0); NEUT # 1.1 10*3/uL (2.3-7.9); NEUT % 53.2 % (47.0-73.0); PLATELET COUNT AUTOMATED 163 10*3/uL (130-400); RED BLOOD COUNT 5.51 10*6/uL (4.10-5.10); RED CELL DISTRI WIDTH 13.4 % (0-14.5); WHITE BLOOD COUNT 2.1 10*3/uL (4.8-10.8)
[2022-05-07 06:51] LABS: CREATININE 1.41 mg/dL (0.55-1.02); FREE T4 1.19 ng/dl (0.76-1.46); POTASSIUM 4.3 mmol/L (3.5-5.1); TOTAL PROTEIN 7.8 gm/dL (6.4-8.2)
[2022-05-07 06:55] LABS: THYROID STIM HORMONE (HS) 0.73 uIU/ml (0.358-4.75)
[2022-05-07 08:00] VITALS: BP 155/99
[2022-05-07 09:56] LABS: VITAMIN D, 25-HYDROXY 38.2 ng/mL (30-100)
[2022-05-07 12:00] VITALS: BP 172/86
[2022-05-07 16:00] VITALS: BP 187/81
[2022-05-07 20:00] VITALS: BP 175/82
[2022-05-08] VITALS: BP 180/86; BP 195/98
[2022-05-08 02:46] VITALS: BP 163/70
[2022-05-08 05:42] LABS: CREATININE 1.24 mg/dL (0.55-1.02); POTASSIUM 4.1 mmol/L (3.5-5.1); TOTAL PROTEIN 7.3 gm/dL (6.4-8.2)
[2022-05-08 06:14] LABS: BASO % 0.1 % (0.0-1.0); HEMATOCRIT 43.5 % (37.0-47.0); LYMPH # 1.8 10*3/uL (1.3-4.4); LYMPH % 25.5 % (27.0-41.0); MEAN CELL VOLUME 85.8 fl (81.0-99.0); MEAN CORPUSCULAR HGB 29.4 pg (27.0-31.0); MEAN CORPUSCULAR HGB CONC 34.3 g/dl (33.0-37.0); MEAN PLATELET VOLUME 10.4 fl (9.6-12.3); MONO # 0.7 10*3/uL (0.1-1.0); MONO % 9.6 % (3.0-9.0); NEUT # 4.5 10*3/uL (2.3-7.9); NEUT % 63.9 % (47.0-73.0); PLATELET COUNT AUTOMATED 173 10*3/uL (130-400); RED BLOOD COUNT 5.07 10*6/uL (4.10-5.10); RED CELL DISTRI WIDTH 13.5 % (0-14.5)
[2022-05-08 08:00] VITALS: BP 208/80
[2022-05-08] MEDS ORDERED: Lopressor25 MG PO (08:26)
[2022-05-08 12:00] VITALS: BP 130/52
[2022-05-08 16:00] VITALS: BP 140/63
[2022-05-08 20:00] VITALS: BP 159/57
[2022-05-09] VITALS: BP 164/56
[2022-05-09 05:47] LABS: CREATININE 1.22 mg/dL (0.55-1.02); POTASSIUM 4.1 mmol/L (3.5-5.1)
[2022-05-09 08:00] VITALS: BP 185/83
[2022-05-09 12:00] VITALS: BP 178/60
[2022-05-09 16:00] VITALS: BP 156/70
[2022-05-09 20:00] VITALS: BP 174/84
[2022-05-09 21:00] VITALS: BP 170/80
[2022-05-10] VITALS: BP 175/71
[2022-05-10 01:55] VITALS: BP 174/72
[2022-05-10 06:33] LABS: BASO # 0.1 10*3/uL (0.0-0.1); BASO % 0.7 % (0.0-1.0); HEMATOCRIT 46.2 % (37.0-47.0); LYMPH # 2.4 10*3/uL (1.3-4.4); LYMPH % 32.4 % (27.0-41.0); MEAN CORPUSCULAR HGB 28.5 pg (27.0-31.0); MEAN PLATELET VOLUME 10.4 fl (9.6-12.3); MONO # 0.6 10*3/uL (0.1-1.0); MONO % 8.7 % (3.0-9.0); NEUT # 4.2 10*3/uL (2.3-7.9); NEUT % 56.3 % (47.0-73.0); PLATELET COUNT AUTOMATED 217 10*3/uL (130-400); RED CELL DISTRI WIDTH 13.2 % (0-14.5); WHITE BLOOD COUNT 7.4 10*3/uL (4.8-10.8)
[2022-05-10 06:35] LABS: CREATININE 1.23 mg/dL (0.55-1.02); POTASSIUM 4.1 mmol/L (3.5-5.1); TOTAL PROTEIN 7.5 gm/dL (6.4-8.2)
[2022-05-10 08:00] VITALS: BP 162/84
[2022-05-10 12:00] VITALS: BP 137/78
[2022-05-10 16:00] VITALS: BP 120/54
[2022-05-10 20:00] VITALS: BP 154/72
[2022-05-11] VITALS: BP 160/73
[2022-05-11 06:20] LABS: CREATININE 1.22 mg/dL (0.55-1.02); POTASSIUM 4.1 mmol/L (3.5-5.1)
[2022-05-11 08:00] VITALS: BP 185/70
[2022-05-11 12:00] VITALS: BP 115/91
[2022-05-11] MEDS ORDERED: HYDR12.5C PO (13:44)
[2022-05-11] MEDS ORDERED: AMLODIPINE BESYL5 MG PO (13:44)
[2022-05-11] MEDS ORDERED: DEXAMETHASONE4 MG PO (13:44)
[2022-05-11] MEDS ORDERED: CARVEDILOL6.25 MG PO (13:44)
== END 2022-05-11 15:21 | disposition home or self-care (01) | DRG 178 ==
LOC: ED 08:02 → EDHOLD 15:45 → 4E 15:45
PROVIDERS: Emergency Medicine; Internal Medicine; Registered Nurse; ADMIT Internal Medicine; ATTEND Internal Medicine
DX: U07.1 COVID-19 (principal); E87.2 Acidosis; I25.10 Atherosclerotic heart disease of native coronary artery without angina pectoris; N18.32 Chronic kidney disease, stage 3b; R74.01 Elevation of levels of liver transaminase levels; I12.9 Hypertensive chronic kidney disease with stage 1 through stage 4 chronic kidney disease, or unspecified chronic kidney disease; F32.A Depression, unspecified; R73.9 Hyperglycemia, unspecified; I16.0 Hypertensive urgency; Z68.30 Body mass index [BMI] 30.0-30.9, adult; Z95.5 Presence of coronary angioplasty implant and graft; Z90.710 Acquired absence of both cervix and uterus; Z98.42 Cataract extraction status, left eye; Z98.41 Cataract extraction status, right eye; Z82.49 Family history of ischemic heart disease and other diseases of the circulatory system; Z79.82 Long term (current) use of aspirin; R32 Unspecified urinary incontinence

== ENCOUNTER → 2022-06-16 | Outpatient (CLI) | payer OTHER ==
[~2022-06-16] MED LIST changes: +CARVEDILOL6.25 MG PO; +DEXAMETHASONE4 MG PO; +HYDR12.5C PO; +Lopressor25 MG PO; +ZOLOFT50 MG PO
== END | disposition home or self-care (01) ==
LOC: MAMMO 10:42
PROVIDERS: ATTEND Physician Assistant
DX: Z12.31 Encounter for screening mammogram for malignant neoplasm of breast (principal); N64.9 Disorder of breast, unspecified

== ENCOUNTER 2022-07-17 14:03 | Emergency (ER) | payer OTHER ==
[~2022-07-17] VITALS: Ht 157.5 cm; Wt 76.2 kg
[2022-07-17 15:06] LABS: BASO # 0.1 10*3/uL (0.0-0.1); BASO % 0.7 % (0.0-1.0); EOS # 0.2 10*3/uL (0.0-0.4); EOS % 2.2 % (1.0-4.0); HEMATOCRIT 41.5 % (37.0-47.0); LYMPH # 1.8 10*3/uL (1.3-4.4); LYMPH % 24.5 % (27.0-41.0); MEAN CORPUSCULAR HGB 28.9 pg (27.0-31.0); MEAN CORPUSCULAR HGB CONC 33.3 g/dl (33.0-37.0); MEAN PLATELET VOLUME 9.6 fl (9.6-12.3); MONO # 0.9 10*3/uL (0.1-1.0); MONO % 11.7 % (3.0-9.0); NEUT # 4.4 10*3/uL (2.3-7.9); NEUT % 60.3 % (47.0-73.0); PLATELET COUNT AUTOMATED 177 10*3/uL (130-400); RED BLOOD COUNT 4.77 10*6/uL (4.10-5.10); RED CELL DISTRI WIDTH 13.8 % (0-14.5); WHITE BLOOD COUNT 7.3 10*3/uL (4.8-10.8)
[2022-07-17 15:30] LABS: CREATININE 2.72 mg/dL (0.55-1.02); POTASSIUM 4.1 mmol/L (3.5-5.1)
== END 2022-07-17 19:10 | disposition short-term general hospital (02) ==
LOC: ED 14:03
PROVIDERS: Student in an Organized Health Care Education/Training Program
DX: N20.0 Calculus of kidney (principal); N17.9 Acute kidney failure, unspecified; I10 Essential (primary) hypertension; I25.10 Atherosclerotic heart disease of native coronary artery without angina pectoris; Z98.890 Other specified postprocedural states; Z90.710 Acquired absence of both cervix and uterus; Z79.899 Other long term (current) drug therapy

== ENCOUNTER → 2022-11-04 | Outpatient (CLI) | payer OTHER ==
[~2022-11-04] MED LIST changes: +ASPIRIN ADULT L81 M2 PO; +ATORVASTATIN CA40 M1 PO; +OXYBUTYNIN CHLOR5 M1 PO; +PHENAZOPYRIDIN100 M1 PO
== END | disposition home or self-care (01) ==
LOC: US 13:48
PROVIDERS: ATTEND Urology
DX: N13.30 Unspecified hydronephrosis (principal); N28.89 Other specified disorders of kidney and ureter

== ENCOUNTER 2022-11-12 10:26 | Emergency (ER) | payer OTHER ==
[~2022-11-12] VITALS: Ht 157.4 cm; Wt 64.0 kg
[2022-11-12] MEDS ORDERED: PANTOPRAZOLE SO40 MG PO (10:43)
[2022-11-12] MEDS ORDERED: POTASSIUM CHLO20 ME4 PO (10:43)
[2022-11-12] MEDS ORDERED: SODIUM BICARBO650 MG PO (10:44)
[2022-11-12 11:08] LABS: BASO # 0.1 10*3/uL (0.0-0.1); BASO % 0.4 % (0.0-1.0); EOS % 0.1 % (1.0-4.0); HEMATOCRIT 32.7 % (37.0-47.0); LYMPH # 1.8 10*3/uL (1.3-4.4); LYMPH % 12.2 % (27.0-41.0); MEAN CELL VOLUME 86.7 fl (81.0-99.0); MEAN CORPUSCULAR HGB 27.9 pg (27.0-31.0); MEAN CORPUSCULAR HGB CONC 32.1 g/dl (33.0-37.0); MEAN PLATELET VOLUME 9.5 fl (9.6-12.3); MONO # 1.3 10*3/uL (0.1-1.0); MONO % 8.9 % (3.0-9.0); NEUT # 11.3 10*3/uL (2.3-7.9); NEUT % 77.6 % (47.0-73.0); PLATELET COUNT AUTOMATED 313 10*3/uL (130-400); RED BLOOD COUNT 3.77 10*6/uL (4.10-5.10); RED CELL DISTRI WIDTH 14.6 % (0-14.5); WHITE BLOOD COUNT 14.6 10*3/uL (4.8-10.8)
[2022-11-12 11:32] LABS: TOTAL PROTEIN 7.6 gm/dL (6.0-8.0)
[2022-11-12 12:34] LABS: BILIRUBIN Negative (Negative); BLOOD 3+ (Negative); CLARITY Turbid (Clear); COLOR Yellow (Yellow); GLUCOSE Negative (Negative); KETONE Trace (Negative); LEUKO ESTERASE 3+ (Negative); NITRITE Positive (Negative); UROBILINOGEN 0.2 E.U./dl (0.0-1.0)
[2022-11-12 13:12] LABS: BACTERIA 2+; RBC 16-20 rbc/hpf (0-2); WBC TNTC wbc/hpf (0-5)
== END 2022-11-12 23:00 | disposition short-term general hospital (02) ==
LOC: ED 10:26
PROVIDERS: Emergency Medicine
DX: A41.9 Sepsis, unspecified organism (principal); N13.30 Unspecified hydronephrosis; I21.4 Non-ST elevation (NSTEMI) myocardial infarction; N12 Tubulo-interstitial nephritis, not specified as acute or chronic; Z90.710 Acquired absence of both cervix and uterus; Z90.49 Acquired absence of other specified parts of digestive tract; Z98.890 Other specified postprocedural states; F10.20 Alcohol dependence, uncomplicated; Z20.822 Contact with and (suspected) exposure to COVID-19; N39.0 Urinary tract infection, site not specified; N17.9 Acute kidney failure, unspecified; D72.89 Other specified disorders of white blood cells; R79.82 Elevated C-reactive protein (CRP); E87.1 Hypo-osmolality and hyponatremia; K21.9 Gastro-esophageal reflux disease without esophagitis; J44.9 Chronic obstructive pulmonary disease, unspecified; I10 Essential (primary) hypertension

== ENCOUNTER 2024-02-21 09:00 | Emergency (ER) | payer OTHER ==
[~2024-02-21] VITALS: Ht 157.4 cm; Wt 79.4 kg
[~2024-02-21 09:00] MED LIST changes: +APRESOLINE25 MG PO; +POTASSIUM CHLO20 ME4 PO; +SODIUM BICARBO650 MG PO
[2024-02-21] MEDS ORDERED: SODIUM CHLORIDE 0.9% 1,000 ML IV ONE (09:10)
[2024-02-21 09:32] LABS: BASO # 0.1 10*3/uL (0.0-0.1); BASO % 0.8 % (0.0-1.0); EOS # 0.3 10*3/uL (0.0-0.4); EOS % 4.3 % (1.0-4.0); HEMATOCRIT 41.4 % (37.0-47.0); LYMPH # 1.8 10*3/uL (1.3-4.4); LYMPH % 29.2 % (27.0-41.0); MEAN CORPUSCULAR HGB 29.2 pg (27.0-31.0); MEAN CORPUSCULAR HGB CONC 32.1 g/dl (33.0-37.0); MEAN PLATELET VOLUME 9.5 fl (9.6-12.3); MONO # 0.5 10*3/uL (0.1-1.0); MONO % 8.6 % (3.0-9.0); NEUT # 3.5 10*3/uL (2.3-7.9); NEUT % 56.8 % (47.0-73.0); PLATELET COUNT AUTOMATED 216 10*3/uL (130-400); RED BLOOD COUNT 4.55 10*6/uL (4.10-5.10); RED CELL DISTRI WIDTH 12.8 % (0-14.5); WHITE BLOOD COUNT 6.1 10*3/uL (4.8-10.8)
[2024-02-21] MEDS ORDERED: CARVEDILOL25 MG PO (09:47)
[2024-02-21 09:49] LABS: ACT PARTIAL THROMBO TIME 26.5 SECONDS (20.0-32.1)
[2024-02-21 09:51] LABS: POTASSIUM 4.6 mmol/L (3.4-5.1); TOTAL PROTEIN 7.4 gm/dL (6.0-8.0)
[2024-02-21 11:19] LABS: BILIRUBIN Negative (Negative); BLOOD Negative (Negative); CLARITY Clear (Clear); COLOR Yellow (Yellow); GLUCOSE Negative (Negative); KETONE Negative (Negative); LEUKO ESTERASE Trace (Negative); NITRITE Negative (Negative); PH 6.5 (4.5-8.0); SPECIFIC GRAVITY 1.015 (1.001-1.030); UROBILINOGEN 0.2 E.U./dl (0.0-1.0)
[2024-02-21 11:29] LABS: RBC 0-2 rbc/hpf (0-2)
== END 2024-02-21 13:18 | disposition home or self-care (01) ==
LOC: ED 09:00
PROVIDERS: Internal Medicine
DX: E86.0 Dehydration (principal); R55 Syncope and collapse; R53.1 Weakness; Z79.899 Other long term (current) drug therapy; Z79.82 Long term (current) use of aspirin; Z90.49 Acquired absence of other specified parts of digestive tract; Z90.711 Acquired absence of uterus with remaining cervical stump; Z95.5 Presence of coronary angioplasty implant and graft

== ENCOUNTER → 2024-03-19 | Outpatient (CLI) | payer OTHER ==
[~2024-03-19] MED LIST changes: +CARVEDILOL25 MG PO
[2024-03-19 10:26] LABS: BASO # 0.1 10*3/uL (0.0-0.1); EOS # 0.4 10*3/uL (0.0-0.4); EOS % 6.7 % (1.0-4.0); HEMATOCRIT 40.4 % (37.0-47.0); LYMPH % 38.6 % (27.0-41.0); MEAN CELL VOLUME 89.4 fl (81.0-99.0); MEAN CORPUSCULAR HGB 29.2 pg (27.0-31.0); MEAN CORPUSCULAR HGB CONC 32.7 g/dl (33.0-37.0); MEAN PLATELET VOLUME 9.6 fl (9.6-12.3); MONO # 0.5 10*3/uL (0.1-1.0); MONO % 9.6 % (3.0-9.0); NEUT # 2.3 10*3/uL (2.3-7.9); NEUT % 43.7 % (47.0-73.0); PLATELET COUNT AUTOMATED 216 10*3/uL (130-400); RED BLOOD COUNT 4.52 10*6/uL (4.10-5.10); WHITE BLOOD COUNT 5.2 10*3/uL (4.8-10.8)
[2024-03-19 10:35] LABS: URINE CREATININE RANDOM 129.43 mg/dL
[2024-03-19 10:46] LABS: BILIRUBIN Negative (Negative); BLOOD Negative (Negative); CLARITY Clear (Clear); COLOR Yellow (Yellow); GLUCOSE Negative (Negative); KETONE Negative (Negative); LEUKO ESTERASE 1+ (Negative); NITRITE Negative (Negative); SPECIFIC GRAVITY 1.015 (1.001-1.030); UROBILINOGEN 0.2 E.U./dl (0.0-1.0)
[2024-03-19 11:01] LABS: POTASSIUM 4.7 mmol/L (3.4-5.1)
[2024-03-19 13:23] LABS: BACTERIA 2+; WBC 21-30 wbc/hpf (0-5)
== END ==
LOC: US 09:30 → LAB 09:42
PROVIDERS: ATTEND Internal Medicine Nephrology
DX: I12.9 Hypertensive chronic kidney disease with stage 1 through stage 4 chronic kidney disease, or unspecified chronic kidney disease (principal); N18.4 Chronic kidney disease, stage 4 (severe); N20.0 Calculus of kidney; N13.30 Unspecified hydronephrosis; E55.9 Vitamin D deficiency, unspecified; N25.81 Secondary hyperparathyroidism of renal origin; D63.1 Anemia in chronic kidney disease

== ENCOUNTER → 2024-04-06 | Outpatient (CLI) | payer OTHER ==
[2024-04-11 21:06] LABS: CALCIUM PHOSPHATE SATURATION 0.03 (0.50-2.00); CALCIUM, OXALATE SATURATION 0.83 (6.00-10.00); CALCIUM/CREATININE RATIO 18 (51-262); CREATININE/KG BODY WEIGHT 10.8 (8.7-20.3); CYSTINE,URINE,QUAL Neg (Negative); URIC ACID SATURATION 1.84 (<1.00); URINE CALCIUM 16 mg/24 hr (<200); URINE CITRATE 55 mg/24 hr (>550); URINE CREATININE 846 mg/24 hr (Not Applic.); URINE MAGNESIUM 38 mg/24 hr (30-120); URINE OXALATE 16 mg/24 hr (20-40); URINE PH 24 HR 5.171 (5.800-6.200); URINE POTASSIUM 30 (20-100); URINE SODIUM 149 (50-150); URINE UREA NITROGEN 5.69 g/24 hr (6.00-14.00); URINE URIC ACID 287 mg/24 hr (<750); URINE VOLUME PRESERVED 1030 mL/24 hr (500-4000)
== END | disposition home or self-care (01) ==
LOC: LAB 12:44
PROVIDERS: ATTEND Internal Medicine Nephrology
DX: N20.0 Calculus of kidney (principal)

== ENCOUNTER → 2024-05-10 | Outpatient (CLI) | payer OTHER ==
[2024-05-10 13:12] LABS: BILIRUBIN Negative (Negative); BLOOD Negative (Negative); CLARITY Cloudy (Clear); COLOR Yellow (Yellow); GLUCOSE Negative (Negative); KETONE Negative (Negative); LEUKO ESTERASE 1+ (Negative); NITRITE Negative (Negative); PH 5.5 (4.5-8.0); SPECIFIC GRAVITY 1.015 (1.001-1.030); UROBILINOGEN 0.2 E.U./dl (0.0-1.0)
[2024-05-10 13:21] LABS: URINE CREATININE RANDOM 94.65 mg/dL
[2024-05-10 13:32] LABS: EPITHELIAL CELLS 0-2
[2024-05-10 13:41] LABS: POTASSIUM 4.7 mmol/L (3.4-5.1)
== END | disposition home or self-care (01) ==
LOC: LAB 12:35
PROVIDERS: ATTEND Internal Medicine Nephrology
DX: N18.4 Chronic kidney disease, stage 4 (severe) (principal)

== ENCOUNTER 2024-05-21 19:25 | Emergency (ER) | payer OTHER ==
[~2024-05-21] VITALS: Ht 167.6 cm
[2024-05-21 19:43] LABS: BASO % 0.5 % (0.0-1.0); EOS # 0.1 10*3/uL (0.0-0.4); EOS % 2.1 % (1.0-4.0); HEMATOCRIT 41.5 % (37.0-47.0); LYMPH # 1.8 10*3/uL (1.3-4.4); LYMPH % 29.8 % (27.0-41.0); MEAN CELL VOLUME 88.3 fl (81.0-99.0); MEAN CORPUSCULAR HGB 28.9 pg (27.0-31.0); MEAN CORPUSCULAR HGB CONC 32.8 g/dl (33.0-37.0); MONO # 0.6 10*3/uL (0.1-1.0); MONO % 9.8 % (3.0-9.0); NEUT # 3.5 10*3/uL (2.3-7.9); NEUT % 57.6 % (47.0-73.0); PLATELET COUNT AUTOMATED 235 10*3/uL (130-400); RED CELL DISTRI WIDTH 13.3 % (0-14.5); WHITE BLOOD COUNT 6.1 10*3/uL (4.8-10.8)
[2024-05-21 20:06] LABS: TOTAL PROTEIN 7.3 gm/dL (6.0-8.0)
== END 2024-05-21 22:33 | disposition home or self-care (01) ==
LOC: ED 19:25
PROVIDERS: Internal Medicine
DX: R07.89 Other chest pain (principal); I12.9 Hypertensive chronic kidney disease with stage 1 through stage 4 chronic kidney disease, or unspecified chronic kidney disease; N18.4 Chronic kidney disease, stage 4 (severe); R79.89 Other specified abnormal findings of blood chemistry; F41.9 Anxiety disorder, unspecified; K21.9 Gastro-esophageal reflux disease without esophagitis; F32.A Depression, unspecified; J44.9 Chronic obstructive pulmonary disease, unspecified; I25.2 Old myocardial infarction; Z87.442 Personal history of urinary calculi; Z90.49 Acquired absence of other specified parts of digestive tract; Z90.710 Acquired absence of both cervix and uterus; Z95.5 Presence of coronary angioplasty implant and graft; Z98.890 Other specified postprocedural states

== ENCOUNTER 2024-06-09 14:27 | Emergency (ER) | payer OTHER ==
[~2024-06-09] VITALS: Ht 160 cm; Wt 76.2 kg
[2024-06-09 15:09] LABS: BASO % 0.5 % (0.0-1.0); EOS # 0.1 10*3/uL (0.0-0.4); EOS % 1.4 % (1.0-4.0); HEMATOCRIT 42.2 % (37.0-47.0); LYMPH # 1.5 10*3/uL (1.3-4.4); LYMPH % 18.7 % (27.0-41.0); MEAN CELL VOLUME 90.4 fl (81.0-99.0); MEAN CORPUSCULAR HGB 28.7 pg (27.0-31.0); MEAN CORPUSCULAR HGB CONC 31.8 g/dl (33.0-37.0); MEAN PLATELET VOLUME 9.5 fl (9.6-12.3); MONO # 0.7 10*3/uL (0.1-1.0); MONO % 9.4 % (3.0-9.0); NEUT # 5.5 10*3/uL (2.3-7.9); NEUT % 69.5 % (47.0-73.0); PLATELET COUNT AUTOMATED 225 10*3/uL (130-400); RED BLOOD COUNT 4.67 10*6/uL (4.10-5.10); RED CELL DISTRI WIDTH 13.5 % (0-14.5); WHITE BLOOD COUNT 7.9 10*3/uL (4.8-10.8)
[2024-06-09 15:19] LABS: ACT PARTIAL THROMBO TIME 28.7 SECONDS (20.0-32.1)
[2024-06-09 15:25] LABS: POTASSIUM 4.4 mmol/L (3.4-5.1); TOTAL PROTEIN 7.5 gm/dL (6.0-8.0)
== END 2024-06-09 18:47 | disposition home or self-care (01) ==
LOC: ED 14:27
PROVIDERS: Nurse Practitioner
DX: S52.502A Unspecified fracture of the lower end of left radius, initial encounter for closed fracture (principal); M54.50 Low back pain, unspecified; M79.632 Pain in left forearm; F41.9 Anxiety disorder, unspecified; I12.9 Hypertensive chronic kidney disease with stage 1 through stage 4 chronic kidney disease, or unspecified chronic kidney disease; N18.9 Chronic kidney disease, unspecified; K21.9 Gastro-esophageal reflux disease without esophagitis; F32.A Depression, unspecified; Z87.442 Personal history of urinary calculi; J44.9 Chronic obstructive pulmonary disease, unspecified; I25.2 Old myocardial infarction; Z90.49 Acquired absence of other specified parts of digestive tract; Z90.710 Acquired absence of both cervix and uterus; Z95.5 Presence of coronary angioplasty implant and graft; Z98.890 Other specified postprocedural states; W01.198A Fall on same level from slipping, tripping and stumbling with subsequent striking against other object, initial encounter; Y93.89 Activity, other specified; Y92.89 Other specified places as the place of occurrence of the external cause; Y99.8 Other external cause status

== ENCOUNTER → 2024-06-22 | Outpatient (CLI) | payer OTHER | END | disposition home or self-care (01) | LOC: ORTHO 01:58 | PROVIDERS: ATTEND Orthopaedic Surgery | DX: S52.572D Other intraarticular fracture of lower end of left radius, subsequent encounter for closed fracture with routine healing (principal); M19.032 Primary osteoarthritis, left wrist; X58.XXXD Exposure to other specified factors, subsequent encounter ==

== ENCOUNTER → 2024-07-20 | Outpatient (CLI) | payer OTHER | END | disposition home or self-care (01) | LOC: ORTHO 02:11 | PROVIDERS: ATTEND Orthopaedic Surgery | DX: S52.572D Other intraarticular fracture of lower end of left radius, subsequent encounter for closed fracture with routine healing (principal); X58.XXXD Exposure to other specified factors, subsequent encounter ==

== ENCOUNTER → 2024-08-22 | Outpatient (CLI) | payer OTHER | END | disposition home or self-care (01) | LOC: ORTHO 00:46 | PROVIDERS: ATTEND Orthopaedic Surgery | DX: S52.572D Other intraarticular fracture of lower end of left radius, subsequent encounter for closed fracture with routine healing (principal); M25.512 Pain in left shoulder; M19.032 Primary osteoarthritis, left wrist; X58.XXXD Exposure to other specified factors, subsequent encounter ==

== ENCOUNTER → 2024-08-23 | Outpatient (CLI) | payer OTHER ==
[2024-08-23 17:02] LABS: BASO # 0.1 10*3/uL (0.0-0.1); BASO % 0.8 % (0.0-1.0); EOS # 0.3 10*3/uL (0.0-0.4); EOS % 4.7 % (1.0-4.0); HEMATOCRIT 42.5 % (37.0-47.0); MEAN CORPUSCULAR HGB 29.4 pg (27.0-31.0); MEAN CORPUSCULAR HGB CONC 32.7 g/dl (33.0-37.0); MEAN PLATELET VOLUME 9.7 fl (9.6-12.3); MONO # 0.6 10*3/uL (0.1-1.0); MONO % 9.2 % (3.0-9.0); NEUT # 2.7 10*3/uL (2.3-7.9); NEUT % 40.6 % (47.0-73.0); PLATELET COUNT AUTOMATED 236 10*3/uL (130-400); RED BLOOD COUNT 4.72 10*6/uL (4.10-5.10); RED CELL DISTRI WIDTH 13.6 % (0-14.5); WHITE BLOOD COUNT 6.7 10*3/uL (4.8-10.8)
[2024-08-23 17:10] LABS: BILIRUBIN Negative (Negative); BLOOD Negative (Negative); CLARITY Clear (Clear); COLOR Yellow (Yellow); GLUCOSE Negative (Negative); KETONE Negative (Negative); LEUKO ESTERASE 2+ (Negative); NITRITE Negative (Negative); SPECIFIC GRAVITY 1.015 (1.001-1.030); UROBILINOGEN 0.2 E.U./dl (0.0-1.0)
[2024-08-23 17:14] LABS: URINE CREATININE RANDOM 108.87 mg/dL
[2024-08-23 17:17] LABS: BACTERIA 1+; WBC 21-30 wbc/hpf (0-5)
[2024-08-23 17:28] LABS: POTASSIUM 4.1 mmol/L (3.4-5.1)
[2024-08-23 17:31] LABS: VITAMIN D, 25-HYDROXY 45.6 ng/mL (30-100)
== END | disposition home or self-care (01) ==
LOC: LAB 16:31
PROVIDERS: ATTEND Internal Medicine Nephrology
DX: N18.4 Chronic kidney disease, stage 4 (severe) (principal); N25.81 Secondary hyperparathyroidism of renal origin; E55.9 Vitamin D deficiency, unspecified; D63.1 Anemia in chronic kidney disease

== ENCOUNTER → 2024-10-12 | Outpatient (CLI) | payer MEDICARE, MEDICAID ==
[2024-10-12 13:07] LABS: BASO # 0.1 10*3/uL (0.0-0.1); BASO % 0.8 % (0.0-1.0); EOS # 0.3 10*3/uL (0.0-0.4); EOS % 5.6 % (1.0-4.0); HEMATOCRIT 41.1 % (37.0-47.0); MEAN CELL VOLUME 90.5 fl (81.0-99.0); MEAN CORPUSCULAR HGB 28.9 pg (27.0-31.0); MEAN CORPUSCULAR HGB CONC 31.9 g/dl (33.0-37.0); MEAN PLATELET VOLUME 9.8 fl (9.6-12.3); MONO # 0.7 10*3/uL (0.1-1.0); MONO % 11.5 % (3.0-9.0); NEUT # 2.7 10*3/uL (2.3-7.9); PLATELET COUNT AUTOMATED 207 10*3/uL (130-400); RED BLOOD COUNT 4.54 10*6/uL (4.10-5.10); RED CELL DISTRI WIDTH 13.2 % (0-14.5); WHITE BLOOD COUNT 5.9 10*3/uL (4.8-10.8)
[2024-10-12 13:34] LABS: POTASSIUM 4.5 mmol/L (3.4-5.1); TOTAL PROTEIN 7.3 gm/dL (6.0-8.0)
== END | disposition home or self-care (01) ==
LOC: LAB 12:22
PROVIDERS: ATTEND Nurse Practitioner Family
DX: R11.0 Nausea (principal); F33.9 Major depressive disorder, recurrent, unspecified; F41.9 Anxiety disorder, unspecified; I10 Essential (primary) hypertension

== ENCOUNTER 2024-12-16 14:50 | Emergency (ER) | payer MEDICARE, MEDICAID ==
[~2024-12-16] VITALS: Ht 157.4 cm; Wt 75.3 kg
[~2024-12-16 14:50] MED LIST changes: +VENT7GM INH
[2024-12-16] MEDS ORDERED: MORPHINE Sulfate 2 MG/ML SYR IV ONE (17:05)
[2024-12-16] MEDS ORDERED: Ondansetron Hydrochloride 4 MG/2 ML VIAL IV ONE (17:05)
[2024-12-16 17:48] LABS: BASO % 0.4 % (0.0-1.0); EOS # 0.2 10*3/uL (0.0-0.4); EOS % 2.8 % (1.0-4.0); HEMATOCRIT 40.6 % (37.0-47.0); MEAN CELL VOLUME 90.8 fl (81.0-99.0); MEAN CORPUSCULAR HGB 29.3 pg (27.0-31.0); MEAN CORPUSCULAR HGB CONC 32.3 g/dl (33.0-37.0); MEAN PLATELET VOLUME 9.6 fl (9.6-12.3); MONO # 0.7 10*3/uL (0.1-1.0); MONO % 10.2 % (3.0-9.0); NEUT % 58.1 % (47.0-73.0); PLATELET COUNT AUTOMATED 183 10*3/uL (130-400); RED BLOOD COUNT 4.47 10*6/uL (4.10-5.10); RED CELL DISTRI WIDTH 13.7 % (0-14.5); WHITE BLOOD COUNT 6.9 10*3/uL (4.8-10.8)
[2024-12-16 18:17] LABS: POTASSIUM 4.1 mmol/L (3.4-5.1)
== END 2024-12-16 18:41 | disposition home or self-care (01) ==
LOC: ED 14:50
PROVIDERS: Emergency Medicine
DX: R07.89 Other chest pain (principal); I25.10 Atherosclerotic heart disease of native coronary artery without angina pectoris; F41.9 Anxiety disorder, unspecified; F32.A Depression, unspecified; J44.9 Chronic obstructive pulmonary disease, unspecified; I12.9 Hypertensive chronic kidney disease with stage 1 through stage 4 chronic kidney disease, or unspecified chronic kidney disease; N18.9 Chronic kidney disease, unspecified; Z87.442 Personal history of urinary calculi; Z95.5 Presence of coronary angioplasty implant and graft; Z90.710 Acquired absence of both cervix and uterus; Z98.890 Other specified postprocedural states; Z90.49 Acquired absence of other specified parts of digestive tract

== ENCOUNTER → 2024-12-25 | Outpatient (CLI) | payer MEDICARE, MEDICAID ==
[~2024-12-25] MED LIST changes: +Regadenoson 0.4 MG/5 ML SYR IV ONE; +Technetium Tc 99M Tetrofosmi 0.23 MG KIT IJ SCH
== END | disposition home or self-care (01) ==
LOC: CARD 01:44
PROVIDERS: ATTEND Internal Medicine Cardiovascular Disease
DX: I20.0 Unstable angina (principal); Z95.5 Presence of coronary angioplasty implant and graft

== ENCOUNTER 2025-05-21 15:34 | Emergency (ER) | payer MEDICARE, MEDICAID ==
[~2025-05-21] VITALS: Ht 157.4 cm; Wt 75.3 kg
[~2025-05-21 15:34] MED LIST changes: -Regadenoson 0.4 MG/5 ML SYR IV ONE; -Technetium Tc 99M Tetrofosmi 0.23 MG KIT IJ SCH
[2025-05-21] MEDS ORDERED: SODIUM CHLORIDE 0.9% 500 ML IV ONE (16:05)
[2025-05-21] MEDS ORDERED: Ondansetron Hydrochloride 4 MG/2 ML VIAL IV ONE (16:05)
[2025-05-21 16:16] LABS: BASO # 0.0 10*3/uL (0.0-0.1); BASO % 0.6 % (0.0-1.0); EOS # 0.3 10*3/uL (0.0-0.4); EOS % 4.9 % (1.0-4.0); MEAN CELL VOLUME 90.1 fl (81.0-99.0); MEAN CORPUSCULAR HGB 29.2 pg (27.0-31.0); MEAN PLATELET VOLUME 9.6 fl (9.6-12.3); MONO # 0.6 10*3/uL (0.1-1.0); MONO % 8.8 % (3.0-9.0); NEUT # 4.0 10*3/uL (2.3-7.9); NEUT % 62.7 % (47.0-73.0); NUCLEATED RED BLOOD CELL 0.0 % (0.0-0.0); NUCLEATED RED BLOOD CELL 0.0 10*3/uL (0.0-0.0); PLATELET COUNT AUTOMATED 217 10*3/uL (130-400); RED CELL DISTRI WIDTH 13.2 % (0-14.5)
[2025-05-21 16:40] LABS: BUN 33.0 mg/dl (9-23); SGPT/ALT 12.0 U/L (5-49)
[2025-05-21 18:10] LABS: BILIRUBIN Negative (Negative); BLOOD Negative (Negative); CLARITY Clear (Clear); COLOR Yellow (Yellow); KETONE Trace (Negative); LEUKO ESTERASE 2+ (Negative); NITRITE Negative (Negative); PH 5.5 (4.5-8.0); SPECIFIC GRAVITY 1.015 (1.001-1.030); UROBILINOGEN 0.2 E.U./dl (0.0-1.0)
[2025-05-21 18:17] LABS: RBC 0-2 rbc/hpf (0-2); WBC 51-100 wbc/hpf (0-5)
[2025-05-21 18:18] LABS: BACTERIA TRACE; MUCOUS TRACE
[2025-05-21] MEDS ORDERED: METRONIDAZOLE500 M1 PO (22:26)
[2025-05-21] MEDS ORDERED: CIPRO500 MG PO (22:26)
== END 2025-05-21 22:30 | disposition home or self-care (01) ==
LOC: ED 15:34
PROVIDERS: Emergency Medicine
DX: K52.9 Noninfective gastroenteritis and colitis, unspecified (principal); N39.0 Urinary tract infection, site not specified; I12.9 Hypertensive chronic kidney disease with stage 1 through stage 4 chronic kidney disease, or unspecified chronic kidney disease; N18.9 Chronic kidney disease, unspecified; K21.9 Gastro-esophageal reflux disease without esophagitis; J44.9 Chronic obstructive pulmonary disease, unspecified; F41.9 Anxiety disorder, unspecified; Z79.899 Other long term (current) drug therapy; Z90.49 Acquired absence of other specified parts of digestive tract; Z90.710 Acquired absence of both cervix and uterus; Z98.890 Other specified postprocedural states

== ENCOUNTER → 2025-08-10 | Outpatient (CLI) | payer OTHER, MEDICAID ==
[~2025-08-10] MED LIST changes: +CIPRO500 MG PO; +METRONIDAZOLE500 M1 PO
[2025-08-10 11:14] LABS: BASO # 0.0 10*3/uL (0.0-0.1); BASO % 0.7 % (0.0-1.0); EOS # 0.2 10*3/uL (0.0-0.4); EOS % 3.9 % (1.0-4.0); MEAN CELL VOLUME 92.7 fl (81.0-99.0); MEAN CORPUSCULAR HGB 29.9 pg (27.0-31.0); MEAN PLATELET VOLUME 9.8 fl (9.6-12.3); MONO # 0.5 10*3/uL (0.1-1.0); MONO % 8.0 % (3.0-9.0); NEUT # 2.9 10*3/uL (2.3-7.9); NEUT % 52.6 % (47.0-73.0); NUCLEATED RED BLOOD CELL 0.0 % (0.0-0.0); NUCLEATED RED BLOOD CELL 0.0 10*3/uL (0.0-0.0); PLATELET COUNT AUTOMATED 207 10*3/uL (130-400); RED CELL DISTRI WIDTH 13.7 % (0-14.5)
[2025-08-10 11:31] LABS: BILIRUBIN Negative (Negative); BLOOD Trace-Lysed (Negative); CLARITY Clear (Clear); COLOR Yellow (Yellow); KETONE Negative (Negative); LEUKO ESTERASE 1+ (Negative); NITRITE Negative (Negative); PH 5.5 (4.5-8.0); SPECIFIC GRAVITY 1.015 (1.001-1.030); UROBILINOGEN 0.2 E.U./dl (0.0-1.0)
[2025-08-10 11:42] LABS: BACTERIA TRACE; MUCOUS TRACE; VITAMIN D, 25-HYDROXY 38.9 ng/mL (30-100)
[2025-08-10 11:44] LABS: BUN 37.0 mg/dl (9-23)
== END | disposition home or self-care (01) ==
LOC: LAB 10:41
PROVIDERS: ATTEND Internal Medicine Nephrology
DX: N25.81 Secondary hyperparathyroidism of renal origin (principal); E55.9 Vitamin D deficiency, unspecified; D63.1 Anemia in chronic kidney disease; N18.4 Chronic kidney disease, stage 4 (severe)

== ENCOUNTER 2025-09-17 12:18 | Inpatient (IN) | payer OTHER ==
[~2025-09-17] VITALS: Ht 157.5 cm; Wt 74.0 kg
[2025-09-17 12:25] VITALS: BP 183/60
[2025-09-17 13:01] LABS: VENOUS BLOOD GAS O2 SAT 99.2 % (60.0-85.0)
[2025-09-17 13:02] LABS: BASO # 0.1 10*3/uL (0.0-0.1); BASO % 0.9 % (0.0-1.0); EOS # 0.3 10*3/uL (0.0-0.4); EOS % 5.0 % (1.0-4.0); MEAN CELL VOLUME 88.0 fl (81.0-99.0); MEAN CORPUSCULAR HGB 29.5 pg (27.0-31.0); MEAN PLATELET VOLUME 10.2 fl (9.6-12.3); MONO # 0.9 10*3/uL (0.1-1.0); MONO % 13.8 % (3.0-9.0); NEUT # 2.9 10*3/uL (2.3-7.9); NEUT % 43.3 % (47.0-73.0); NUCLEATED RED BLOOD CELL 0.0 % (0.0-0.0); NUCLEATED RED BLOOD CELL 0.0 10*3/uL (0.0-0.0); PLATELET COUNT AUTOMATED 189 10*3/uL (130-400); RED CELL DISTRI WIDTH 13.2 % (0-14.5)
[2025-09-17 13:23] LABS: BUN 47.0 mg/dl (9-23); CPK 100.0 U/L (34-171)
[2025-09-17 13:57] VITALS: BP 155/80
[2025-09-17] MEDS ORDERED: AZITHROMYCIN 250 ML IV ONE (14:35)
[2025-09-17] MEDS ORDERED: AMOX-CLAV 875-1 EACH PO (15:41)
[2025-09-17] MEDS ORDERED: PREDNISONE20 M1 PO (15:41)
[2025-09-17 16:10] VITALS: BP 139/46
[2025-09-17] MEDS ORDERED: Acetaminophen/Hydrocodone 5 MG/325 MG TABLET PO PRN (16:30)
[2025-09-17] MEDS ORDERED: BISACODYL 10 MG SUPP R PRN (16:30)
[2025-09-17] MEDS ORDERED: Ondansetron Hydrochloride 4 MG/2 ML VIAL IV PRN (16:30)
[2025-09-17] MEDS ORDERED: ACETAMINOPHEN 325 MG TAB PO PRN (16:30)
[2025-09-17] MEDS ORDERED: ACETAMINOPHEN 650 MG SUPP R PRN (16:30)
[2025-09-17] MEDS ORDERED: BISACODYL 5 MG TAB PO PRN (16:30)
[2025-09-17] MEDS ORDERED: SODIUM CHLORIDE 0.9% 1,000 ML IV ONE (17:05)
[2025-09-17] MEDS ORDERED: Albuterol Sulf/Ipratropium 3 ML VIAL NEB PRN (17:10)
[2025-09-17] MEDS ORDERED: Albuterol Sulf/Ipratropium 3 ML VIAL NEB SCH (17:10)
[2025-09-17] MEDS ORDERED: Menthol/Zinc Oxide 4 GM THIN T SCH (18:00)
[2025-09-17 20:00] VITALS: BP 106/56
[2025-09-17 20:34] LABS: BILIRUBIN Negative (Negative); BLOOD Trace-Lysed (Negative); CLARITY Cloudy (Clear); COLOR Yellow (Yellow); KETONE Trace (Negative); LEUKO ESTERASE 2+ (Negative); NITRITE Negative (Negative); PH 5.0 (4.5-8.0); SPECIFIC GRAVITY 1.020 (1.001-1.030); UROBILINOGEN 0.2 E.U./dl (0.0-1.0)
[2025-09-17 20:57] LABS: BACTERIA 1+; EPITHELIAL CELLS 31-40; FINE GRANULAR CAST 0-2; WBC 51-100 wbc/hpf (0-5)
[2025-09-17] MEDS ORDERED: HEPARIN SODIUM 5,000 UNIT/ML VIAL SC SCH (22:00)
[2025-09-17] MEDS ORDERED: GUAIFENESIN 600 MG TAB ER PO SCH (22:00)
[2025-09-18] VITALS: BP 140/55
[2025-09-18 07:45] LABS: MEAN CORPUSCULAR HGB 29.7 pg (27.0-31.0); MEAN PLATELET VOLUME 10.7 fl (9.6-12.3); NUCLEATED RED BLOOD CELL 0.0 % (0.0-0.0); NUCLEATED RED BLOOD CELL 0.0 10*3/uL (0.0-0.0); PLATELET COUNT AUTOMATED 174 10*3/uL (130-400); RED CELL DISTRI WIDTH 13.1 % (0-14.5)
[2025-09-18 07:48] LABS: ACT PARTIAL THROMBO TIME 21.9 SECONDS (20.0-32.1); MANUAL DIFF REFLEX YES; MEAN CELL VOLUME 91.8 fl (81.0-99.0)
[2025-09-18 08:00] VITALS: BP 140/58
[2025-09-18 08:08] LABS: BUN 45.0 mg/dl (9-23); FREE T4 1.5 ng/dl (0.89-1.76); LDL CHOLESTEROL 132.0 mg/dL (9-159); SGPT/ALT 12.0 U/L (5-49)
[2025-09-18 08:15] LABS: PLATELET SUFFICIENCY NORMAL (NORMAL)
[2025-09-18 08:53] LABS: ABG O2 SATURATION 94.8 % (94.0-98.0); ARTERIAL BLOOD GAS PH 7.362 (7.350-7.450); ARTERIAL BLOOD GAS PO2 74.1 mmHg (83.0-108.0)
[2025-09-18 08:57] LABS: ABG BASE EXCESS -7.6 mmol/L (-2.0-3.0)
[2025-09-18 09:20] LABS: VITAMIN D, 25-HYDROXY 58.9 ng/mL (30-100)
[2025-09-18] MEDS ORDERED: CARVEDILOL 25 MG TAB PO SCH (10:00)
[2025-09-18] MEDS ORDERED: ATORVASTATIN CALCIUM 40 MG TABLET PO SCH (10:00)
[2025-09-18] MEDS ORDERED: VANCOMYCIN HCL 125 MG CAPSULE PO SCH (10:00)
[2025-09-18] MEDS ORDERED: ASPIRIN ENTERIC COATED 81 MG TAB PO SCH (10:00)
[2025-09-18 12:00] VITALS: BP 138/57
[2025-09-18] MEDS ORDERED: Vancomycin Hydrochloride 1,000 MG in SODIUM CHLORIDE 0.9% 250 ML IV SCH ×2 (13:05→16:00)
[2025-09-18] MEDS ORDERED: Piperacillin Sodium/Tazobact 2.25 GM in SODIUM CHLORIDE 0.9% 50 ML IV SCH (14:00)
[2025-09-18 16:00] VITALS: BP 152/60
[2025-09-18] MEDS ORDERED: SODIUM CHLORIDE 0.9% 1,000 ML IV ONE (16:05)
[2025-09-18] MEDS ORDERED: Lactobacillus Acidophilus/LA 1 TAB TAB PO SCH (18:00)
[2025-09-18 20:00] VITALS: BP 132/49
[2025-09-19] VITALS (7 sets, daily range): BP systolic 138–187; BP diastolic 51–85
[2025-09-19 06:25] LABS: MEAN CELL VOLUME 89.7 fl (81.0-99.0); MEAN CORPUSCULAR HGB 29.7 pg (27.0-31.0); MEAN PLATELET VOLUME 10.7 fl (9.6-12.3); NUCLEATED RED BLOOD CELL 0.0 % (0.0-0.0); NUCLEATED RED BLOOD CELL 0.0 10*3/uL (0.0-0.0); PLATELET COUNT AUTOMATED 180 10*3/uL (130-400); RED CELL DISTRI WIDTH 13.2 % (0-14.5)
[2025-09-19 06:36] LABS: MANUAL DIFF REFLEX YES
[2025-09-19 06:44] LABS: BUN 60.0 mg/dl (9-23)
[2025-09-19 06:59] LABS: PLATELET SUFFICIENCY NORMAL (NORMAL)
[2025-09-19] MEDS ORDERED: SODIUM CHLORIDE 0.9% 500 ML IV ONE (10:15)
[2025-09-19] MEDS ORDERED: Codeine Phosphate/Guaifenesi 10 ML UDC PO SCH (12:00)
[2025-09-20] VITALS: BP 138/68
[2025-09-20 05:26] LABS: BUN 52.0 mg/dl (9-23)
[2025-09-20 08:00] VITALS: BP 162/56
[2025-09-20 12:00] VITALS: BP 178/65
[2025-09-20] MEDS ORDERED: Codeine Phosphate/Guaifenesi 10 ML UDC PO PRN (12:20)
[2025-09-20 16:00] VITALS: BP 170/67
[2025-09-20 20:00] VITALS: BP 178/81
[2025-09-21] VITALS: BP 157/68
[2025-09-21 06:05] LABS: BUN 51.0 mg/dl (9-23)
[2025-09-21 08:00] VITALS: BP 143/73
[2025-09-21 12:00] VITALS: BP 142/72
[2025-09-21] MEDS ORDERED: SODIUM CHLORIDE 0.9% 1,000 ML IV ONE (15:45)
[2025-09-21 15:58] VITALS: BP 181/71
[2025-09-21 20:00] VITALS: BP 138/67
[2025-09-22] VITALS: BP 146/50
[2025-09-22 05:37] LABS: BUN 48.0 mg/dl (9-23)
[2025-09-22 06:12] LABS: MEAN CELL VOLUME 89.4 fl (81.0-99.0); MEAN CORPUSCULAR HGB 29.6 pg (27.0-31.0); MEAN PLATELET VOLUME 10.4 fl (9.6-12.3); NUCLEATED RED BLOOD CELL 0.0 % (0.0-0.0); NUCLEATED RED BLOOD CELL 0.0 10*3/uL (0.0-0.0); PLATELET COUNT AUTOMATED 230 10*3/uL (130-400); RED CELL DISTRI WIDTH 14.2 % (0-14.5)
[2025-09-22 06:16] LABS: MANUAL DIFF REFLEX YES
[2025-09-22 06:49] LABS: VACUOLATION OF NEUTROPHILS SLIGHT
[2025-09-22 06:50] LABS: PLATELET SUFFICIENCY NORMAL (NORMAL)
[2025-09-22 08:00] VITALS: BP 159/60
[2025-09-22 12:00] VITALS: BP 162/62
[2025-09-22] MEDS ORDERED: CARVEDILOL6.25 MG PO (12:40)
[2025-09-22] MEDS ORDERED: VANCOMYCIN HCL125 MG PO (12:40)
[2025-09-22] MEDS ORDERED: VIBRAMYCIN100 MG PO (12:40)
[2025-09-22] MEDS ORDERED: CARVEDILOL 6.25 MG TAB PO SCH (22:00)
== END 2025-09-22 14:23 | disposition home or self-care (01) | DRG 196 ==
LOC: ED 12:18 → 4E 15:22 → EDHOLD 15:22 → 4E 15:44
PROVIDERS: Emergency Medicine; Internal Medicine; Student in an Organized Health Care Education/Training Program; ADMIT Family Medicine; ATTEND Family Medicine
DX: J84.114 Acute interstitial pneumonitis (principal); J96.01 Acute respiratory failure with hypoxia; N17.0 Acute kidney failure with tubular necrosis; N18.4 Chronic kidney disease, stage 4 (severe); E87.20 Acidosis, unspecified; A04.72 Enterocolitis due to Clostridium difficile, not specified as recurrent; N39.0 Urinary tract infection, site not specified; J45.901 Unspecified asthma with (acute) exacerbation; J44.1 Chronic obstructive pulmonary disease with (acute) exacerbation; G90.9 Disorder of the autonomic nervous system, unspecified; E86.0 Dehydration; F32.A Depression, unspecified; I25.10 Atherosclerotic heart disease of native coronary artery without angina pectoris; Z20.822 Contact with and (suspected) exposure to COVID-19; I12.9 Hypertensive chronic kidney disease with stage 1 through stage 4 chronic kidney disease, or unspecified chronic kidney disease; K76.0 Fatty (change of) liver, not elsewhere classified; E87.5 Hyperkalemia; Z90.49 Acquired absence of other specified parts of digestive tract; Z90.710 Acquired absence of both cervix and uterus; Z83.3 Family history of diabetes mellitus; Z82.49 Family history of ischemic heart disease and other diseases of the circulatory system; Z80.9 Family history of malignant neoplasm, unspecified; Z95.5 Presence of coronary angioplasty implant and graft